=== PATIENT | female | born 1955 | race Caucasian/White ===

== ENCOUNTER → 2016-12-21 | Outpatient (CLI) | payer OTHER ==
[~2016-12-21] MED LIST: ALBUAER19 INH; AMLO-110 PO; CHLO1TAB47 PO; DEXT-10 PO; FLUO20CA37 PO; FURO40TA3 PO; IBUP-1451 PO; VALS320T PO
[2016-12-21 13:00] LABS: ALT/SGPT 50 U/L (12-78); BLOOD UREA NITROGEN 14 mg/dl (7-18); BUN/CREATININE RATIO 16.7 (10-20); CARBON DIOXIDE 28 mmol/L (21-32); CHLORIDE 105 mmol/L (98-107); CREATININE 0.85 mg/dl (0.60-1.20); GLUCOSE 100 mg/dl (70-99); POTASSIUM 4.1 mmol/L (3.5-5.1); SODIUM 141 mmol/L (136-145)
[2016-12-21 13:32] LABS: ALB/GLOB RATIO 1.1 (0.9-2); ALKALINE PHOSPHATASE 93 U/L (45-117); AST/SGOT 26 U/L (15-37)
== END | disposition home or self-care (01) ==
LOC: C.LABBFT 10:56
PROVIDERS: ATTEND Internal Medicine
DX: E55.9 Vitamin D deficiency, unspecified (principal); R53.83 Other fatigue; Z11.59 Encounter for screening for other viral diseases

== ENCOUNTER → 2017-01-16 | Outpatient (CLI) | payer OTHER ==
--- NOTE | 2017-01-16 10:39 | DIAGNOSTIC IMAGING REPORT ---
CAROTID ARTERY ULTRASOUND CLINICAL HISTORY: Possible right-sided carotid bruit. COMPARISON STUDY: None. TECHNIQUE: Real-time, grayscale, and color Doppler sonography of the carotid and vertebral arteries was performed. Images were viewed in the transverse and longitudinal planes. FINDINGS: There is moderate atherosclerotic plaque. Velocity measurements are listed below. COMMON CAROTID PEAK SYSTOLIC VELOCITY (CM/S): RIGHT 67 LEFT 72 ICA PEAK SYSTOLIC VELOCITY (CM/S): RIGHT 78 LEFT 87 The systolic ratios between the internal to common carotid arteries were normal. Antegrade flow is seen in the vertebral arteries. The external carotid arteries are patent. Blood pressure in the right arm measured 197/90. Blood pressure in the left arm measured 199/77. IMPRESSION: 1. No evidence of a hemodynamically significant stenosis. 2. Elevated blood pressure, as above. Electronically signed by: Daniel Cochran M.D. 01/16/2017 10:38 AM Dictated Date/Time: 01/16/2017 10:36 AM
== END | disposition home or self-care (01) ==
LOC: C.ULTR 09:53
PROVIDERS: ATTEND Nurse Practitioner
DX: R09.89 Other specified symptoms and signs involving the circulatory and respiratory systems (principal)

== ENCOUNTER 2017-01-23 14:19 | Emergency (ER) | payer OTHER ==
[~2017-01-23] VITALS: Ht 167.6 cm; Wt 166.7 kg
[~2017-01-23 14:19] MED LIST changes: -AMLO-110 PO
[2017-01-23 14:31] VITALS: TEMP 37
[2017-01-23] MEDS ORDERED: SODIUM CHLORIDE 0.9% 1000ML 1,000 ML IV STA ×2 (15:55→16:13)
[2017-01-23] MEDS ORDERED: DIAZEPAM INJ 5 MG/ML 2 ML CARP IV STA (16:13)
[2017-01-23] MEDS ORDERED: ONDANSETRON 8 MG/54 ML D5W IV STA (16:13)
[2017-01-23 16:20] VITALS: O2SAT 97
[2017-01-23] MEDS ORDERED: OPTIRAY 320 IV PRN (16:30)
[2017-01-23 16:34] LABS: BASO % 0.7 %; BASO ABS # 0.07 K/uL (0-0.2); COMPLETE YES; EOS % 1.9 %; HEMATOCRIT 43.1 % (37-47); IG% 0.2 %; LYMPH % 30.3 %; LYMPH ABS # 2.95 K/uL (1.2-3.4); MEAN CELL VOLUME 90.4 fL (80-100); MEAN CORPUSCULAR HGB CONC 33.2 g/dl (32-36); MEAN PLATELET VOLUME 9.6 fL (7.4-10.4); MONO % 7.8 %; NEUT % 59.1 %; PLATELET COUNT 297 K/uL (130-400); RED BLOOD COUNT 4.77 M/uL (4.2-5.4); WHITE BLOOD COUNT 9.75 K/uL (4.8-10.8)
[2017-01-23 16:43] LABS: PARTIAL THROMBOPLASTIN RATIO 1.1; PROTHROMBIN TIME (PATIENT) 10.4 SECONDS (9.0-12.0)
[2017-01-23 16:48] VITALS: Ht 167.6 cm; Wt 166.7 kg
[2017-01-23 16:54] LABS: ALT/SGPT 44 U/L (12-78); AST/SGOT 24 U/L (15-37); BLOOD UREA NITROGEN 17 mg/dl (7-18); BUN/CREATININE RATIO 22.7 (10-20); CALCIUM 9.1 mg/dl (8.5-10.1); CARBON DIOXIDE 32 mmol/L (21-32); CHLORIDE 105 mmol/L (98-107); CREATININE 0.77 mg/dl (0.60-1.20); GLUCOSE 108 mg/dl (70-99); MAGNESIUM 2.5 mg/dl (1.8-2.4); POTASSIUM 4.5 mmol/L (3.5-5.1); SODIUM 140 mmol/L (136-145)
[2017-01-23 17:05] LABS: ALKALINE PHOSPHATASE 103 U/L (45-117)
[2017-01-23] MEDS ORDERED: AMLO-110 PO (17:11)
--- NOTE | 2017-01-23 18:48 | DIAGNOSTIC IMAGING REPORT ---
CT ANGIOGRAM OF THE BRAIN COMBO; CT ANGIOGRAM OF THE NECK CLINICAL HISTORY: Headache. Dizziness. COMPARISON STUDY: Carotid artery ultrasound dated 01/16/2017. TECHNIQUE: Unenhanced axial CT scan of the brain is performed. Subsequently, following the IV administration of 115 of Optiray 320, CT angiogram of the head and neck was performed from the aortic arch to the vertex. Images are reviewed in the axial, sagittal, and coronal planes. 3-D MIPS images are created and assessed. IV contrast was administered without complication. All measurements were calculated based on NASCET criteria. The CT angiogram the neck is degraded by large body habitus and by streak artifact from the patient's shoulders. CT DOSE: 1654.37 mGy.cm FINDINGS: Brain parenchyma: The brain parenchyma is normal in appearance. There is no hemorrhage, mass effect, or evidence of acute territorial ischemia by CT criteria. There is no evidence of enhancing mass lesion on the angiogram phase images. The ventricles, sulci, and cisterns are normal in configuration. Srivastava-white matter differentiation is preserved. No extra-axial fluid collection is seen. Thoracic aorta: Visualized portions of the thoracic aorta are normal in caliber. The aortic arch demonstrates bovine variant anatomy. Right carotid arterial system: The right common carotid artery is widely patent, as are the right internal and carotid arteries. There is atherosclerotic calcification is noted in the carotid bulb. Left carotid arterial system: The left common carotid artery is widely patent, as are the left internal and external carotid arteries. Atherosclerotic calcification is noted in the carotid bulb. Vertebral arteries: Widely patent and codominant. Subclavian arteries: Widely patent bilaterally. Intracranial vasculature: The internal carotid arteries are widely patent at the skull base. The anterior and middle cerebral arteries are widely patent. The vertebrobasilar system and posterior cerebral arteries are widely patent. The basilar artery and left P1 segment are diminutive, and there is origin of the right posterior cerebral artery. The vertebral arteries are codominant. There is no aneurysm, high-grade stenosis, or focal vessel cutoff identified throughout the intracranial circulation. Jugular veins: Widely patent bilaterally. Dural sinuses: Patent as visualized Lung apices: Partially visualized upper lobe lung parenchyma appears clear. Soft tissues: The visualized pharyngeal soft tissues are normal in appearance noting angiographic phase technique. The oropharyngeal airway appears widely patent. The salivary and thyroid glands are normal in appearance. No cervical lymphadenopathy is seen. Skeletal structures: The calvarium appears intact. The cervical spine is within normal limits noting mild spondylotic change. Sinuses and mastoids: The paranasal sinuses are clear. There is a small left mastoid effusion. The right mastoid air cells are well pneumatized. IMPRESSION: 1. No acute intracranial abnormality. 2. Unremarkable CT angiogram of the brain. 3. Unremarkable CT angiogram of the neck. Electronically signed by: Serafin You M.D. 01/23/2017 6:46 PM Dictated Date/Time: 01/23/2017 6:38 PM
[2017-01-23 19:11] LABS: URINE APPEARANCE CLEAR (CLEAR); URINE BILIRUBIN NEG (NEG); URINE COLOR YELLOW; URINE NITRITE NEG (NEG); URINE SPECIFIC GRAVITY 1.033 (1.000-1.030); UROBILINOGEN NEG (NEG)
[2017-01-23 19:16] LABS: MANUAL MICROSCOPIC REQUIRED? NO; REVIEW REQ? NO
[2017-01-23] MEDS ORDERED: KETOROLAC TROMETHAMINE 30 MG/ML VIAL IV STA (19:38)
[2017-01-23] MEDS ORDERED: TRAMADOL HCL 50 MG HOME PACK PO ONE (20:00)
[2017-01-23] MEDS ORDERED: ONDANSETRON HOME PACK 4MG OD TAB PO ONE (20:00)
[2017-01-23 20:06] VITALS: BP 138/76; PULSE 80; O2SAT 93
--- NOTE | 2017-01-23 21:14 | EMERGENCY ROOM VISIT NOTE ---
History Report prepared by [place]: Damon Parra Under the Supervision of: Dr. John Jarquin M.D. First contact with patient: 15:55 Chief Complaint: DIZZY Stated Complaint: DIZZY History of Present Illness The patient is a 61 year old female who presents to the Emergency Room with complaints of a constant right-sided headache that began around 12 days ago. She currently rates her discomfort a 7/10 in severity. The patient states that she stood up and walked down the hallway. The states by the time she walked to the end of the hallway she felt like she was going to pass out and the room was spinning. She reports that she went to the doctors 8 days ago and she was given Meclizine. She notes that it did not help her symptoms and it made her feel worse. The patient states that she was then sent to physical therapy for vertigo and the physical therapist said she did not have signs of vertigo. She reports that she went to the doctors today. The patient notes that when her symptoms first appeared she was seeing double; now she states she is seeing shadows instead of double. She states that when she walks, she feels like she is going from one side to another. The patient complains of nausea, tiredness, ' feeling off,' neck pain, visual changes, and that light bothers her eyes. She reports that she has gotten headaches before, but this is a completely different headache. Pt denies LOC, headache, fevers, chills, diaphoresis, chest pain, breathing difficulties, vomiting, abdominal pain, back pain, melena, hematochezia, urinary symptoms, numbness, weakness, lymphadenopathy, rash, or other complaints. Source of History: patient Onset: 12 day ago Position: head Quality: other (headache) Timing: constant Associated Symptoms: + nausea, + neck pain Note: Associated symptoms: visual changes, light bothers her eyes, tiredness Review of Systems See HPI for pertinent positives and negatives. A total of ten systems were reviewed and were otherwise negative. Past Medical & Surgical Medical Problems: (1) Asthma (2) Depression (3) Hypertension (4) Migraine (5) Pneumonia Family History Cancer Diabetes mellitus Heart disease Hypertension Social History Smoking Status: Former Smoker Alcohol Use: none Drug Use: none Marital Status: Housing Status: lives with family Occupation Status: unemployed Current/Historical Medications Scheduled Albuterol Inhaler (Ventolin Inhaler), 2 PUFFS INH AMPM Amlodipine (Norvasc), 5 MG PO DAILY Fluoxetine Hcl (Prozac), 20 MG PO DAILY Valsartan (Diovan), 320 MG PO DAILY Scheduled PRN Furosemide (Lasix), 40 MG PO for swelling Ibuprofen Tab (Motrin), 800 MG PO for Pain Allergies Coded Allergies: Codeine (Verified Allergy, Unknown, vomits, dizzy, 12/30/14) Physical Exam Vital Signs Date Time Temp Pulse Resp B/P Pulse Ox O2 Delivery O2 Flow Rate FiO2 01/23/17 20:06 80 18 138/76 93 01/23/17 18:57 75 18 144/51 96 01/23/17 18:55 75 16 144/51 96 86 150/61 85 131/58 01/23/17 17:53 76 16 153/70 95 Room Air 01/23/17 16:35 84 16 126/89 93 Room Air 01/23/17 16:21 85 01/23/17 16:20 97 Room Air 01/23/17 14:31 37.0 86 20 167/74 94 Room Air Physical Exam GENERAL: Awake, alert, well appearing, no distress HENT: Normocephalic, atraumatic. TM's normal. Oropharynx unremarkable. EYES: PERRL. EOMI. Normal conjunctiva. Sclera non-icteric. Minimal lateral nystagmus NECK: Supple. No nuchal rigidity. FROM. No JVD or bruit. RESPIRATORY: CTA CARDIAC: RRR. No murmur. ABDOMEN: Soft, non distended. No tenderness to palpation. No rebound or guarding. No masses. Fundi normal. RECTAL: Deferred. MUSCULOSKELETAL: Unremarkable. No edema. No discoloration. Gross motor strength symmetric. NEURO: Cranial nerves 2-12 grossly intact. Normal sensorium. No sensory or motor deficits noted. Speech normal. No pronator drift. Negative hints exam. SKIN: No rash or jaundice noted. LYMPH: No adenopathy. Medical Decision & Procedures ER Provider Diagnostic Interpretation: Radiology results as stated below per my review and radiologist interpretation CT ANGIOGRAM OF THE BRAIN COMBO; CT ANGIOGRAM OF THE NECK CLINICAL HISTORY: Headache. Dizziness. COMPARISON STUDY: Carotid artery ultrasound dated 01/16/2017. TECHNIQUE: Unenhanced axial CT scan of the brain is performed. Subsequently, following the IV administration of 115 of Optiray 320, CT angiogram of the head and neck was performed from the aortic arch to the vertex. Images are reviewed in the axial, sagittal, and coronal planes. 3-D MIPS images are created and assessed. IV contrast was administered without complication. All measurements were calculated based on NASCET criteria. The CT angiogram the neck is degraded by large body habitus and by streak artifact from the patient's shoulders. CT DOSE: 1654.37 mGy.cm FINDINGS: Brain parenchyma: The brain parenchyma is normal in appearance. There is no hemorrhage, mass effect, or evidence of acute territorial ischemia by CT criteria. There is no evidence of enhancing mass lesion on the angiogram phase images. The ventricles, sulci, and cisterns are normal in configuration. Srivastava-white matter differentiation is preserved. No extra-axial fluid collection is seen. Thoracic aorta: Visualized portions of the thoracic aorta are normal in caliber. The aortic arch demonstrates bovine variant anatomy. Right carotid arterial system: The right common carotid artery is widely patent, as are the right internal and carotid arteries. There is atherosclerotic calcification is noted in the carotid bulb. Left carotid arterial system: The left common carotid artery is widely patent, as are the left internal and external carotid arteries. Atherosclerotic calcification is noted in the carotid bulb. Vertebral arteries: Widely patent and codominant. Subclavian arteries: Widely patent bilaterally. Intracranial vasculature: The internal carotid arteries are widely patent at the skull base. The anterior and middle cerebral arteries are widely patent. The vertebrobasilar system and posterior cerebral arteries are widely patent. The basilar artery and left P1 segment are diminutive, and there is origin of the right posterior cerebral artery. The vertebral arteries are codominant. There is no aneurysm, high-grade stenosis, or focal vessel cutoff identified throughout the intracranial circulation. Jugular veins: Widely patent bilaterally. Dural sinuses: Patent as visualized Lung apices: Partially visualized upper lobe lung parenchyma appears clear. Soft tissues: The visualized pharyngeal soft tissues are normal in appearance noting angiographic phase technique. The oropharyngeal airway appears widely patent. The salivary and thyroid glands are normal in appearance. No cervical lymphadenopathy is seen. Skeletal structures: The calvarium appears intact. The cervical spine is within normal limits noting mild spondylotic change. Sinuses and mastoids: The paranasal sinuses are clear. There is a small left mastoid effusion. The right mastoid air cells are well pneumatized. IMPRESSION: 1. No acute intracranial abnormality. 2. Unremarkable CT angiogram of the brain. 3. Unremarkable CT angiogram of the neck. Electronically signed by: Serafin You M.D. 01/23/2017 6:46 PM Dictated Date/Time: 01/23/2017 6:38 PM Laboratory Results 01/23/17 16:20 Red Blood Count 4.77, Mean Corpuscular Volume 90.4, Mean Corpuscular Hemoglobin 30.0, Mean Corpuscular Hemoglobin Concent 33.2, Mean Platelet Volume 9.6, Neutrophils (%) (Auto) 59.1, Lymphocytes (%) (Auto) 30.3, Monocytes (%) (Auto) 7.8, Eosinophils (%) (Auto) 1.9, Basophils (%) (Auto) 0.7, Neutrophils # (Auto) 5.76, Lymphocytes # (Auto) 2.95, Monocytes # (Auto) 0.76, Eosinophils # (Auto) 0.19, Basophils # (Auto) 0.07 01/23/17 16:20 Test 01/23/17 16:20 01/23/17 18:40 White Blood Count 9.75 K/uL (4.8-10.8) Red Blood Count 4.77 M/uL (4.2-5.4) Hemoglobin 14.3 g/dL (12.0-16.0) Hematocrit 43.1 % (37-47) Mean Corpuscular Volume 90.4 fL (80-100) Mean Corpuscular Hemoglobin 30.0 pg (25-34) Mean Corpuscular Hemoglobin Concent 33.2 g/dl (32-36) Platelet Count 297 K/uL (130-400) Mean Platelet Volume 9.6 fL (7.4-10.4) Neutrophils (%) (Auto) 59.1 % Lymphocytes (%) (Auto) 30.3 % Monocytes (%) (Auto) 7.8 % Eosinophils (%) (Auto) 1.9 % Basophils (%) (Auto) 0.7 % Neutrophils # (Auto) 5.76 K/uL (1.4-6.5) Lymphocytes # (Auto) 2.95 K/uL (1.2-3.4) Monocytes # (Auto) 0.76 K/uL (0.11-0.59) Eosinophils # (Auto) 0.19 K/uL (0-0.5) Basophils # (Auto) 0.07 K/uL (0-0.2) RDW Standard Deviation 40.7 fL (36.4-46.3) RDW Coefficient of Variation 12.2 % (11.5-14.5) Immature Granulocyte % (Auto) 0.2 % Immature Granulocyte # (Auto) 0.02 K/uL (0.00-0.02) Prothrombin Time 10.4 SECONDS (9.0-12.0) Prothromb Time International Ratio 1.0 (0.9-1.1) Activated Partial Thromboplast Time 29.3 SECONDS (21.0-31.0) Partial Thromboplastin Ratio 1.1 Anion Gap 3.0 mmol/L (3-11) Est Creatinine Clear Calc Drug Dose 122.3 ml/min Estimated GFR () 95.9 Estimated GFR (Non- 82.8 BUN/Creatinine Ratio 22.7 (10-20) Calcium Level 9.1 mg/dl (8.5-10.1) Magnesium Level 2.5 mg/dl (1.8-2.4) Total Bilirubin 0.3 mg/dl (0.2-1) Direct Bilirubin < 0.1 mg/dl (0-0.2) Aspartate Amino Transf (AST/SGOT) 24 U/L (15-37) Alanine Aminotransferase (ALT/SGPT) 44 U/L (12-78) Alkaline Phosphatase 103 U/L (45-117) Troponin I < 0.015 ng/ml (0-0.045) Total Protein 7.9 gm/dl (6.4-8.2) Albumin 3.7 gm/dl (3.4-5.0) Lipase 167 U/L (73-393) Thyroid Stimulating Hormone (TSH) 1.720 uIu/ml (0.300-4.500) Urine Color YELLOW Urine Appearance CLEAR (CLEAR) Urine pH 5.0 (4.5-7.5) Urine Specific [place] 1.033 (1.000-1.030) Urine Protein NEG (NEG) Urine Glucose (UA) NEG (NEG) Urine Ketones NEG (NEG) Urine Occult Blood NEG (NEG) Urine Nitrite NEG (NEG) Urine Bilirubin NEG (NEG) Urine Urobilinogen NEG (NEG) Urine Leukocyte Esterase MODERATE (NEG) Urine WBC (Auto) 10-30 /hpf (0-5) Urine RBC (Auto) 0-4 /hpf (0-4) Urine Hyaline Casts (Auto) 1-5 /lpf (0-5) Urine Epithelial Cells (Auto) 10-20 /lpf (0-5) Urine Bacteria (Auto) NEG (NEG) Laboratory results reviewed by me Medications Administered Medications (Trade) Dose Ordered Sig/Noam Route Start Time Stop Time Status Last Admin Dose Admin Sodium Chloride (Nss 1000ml) 1,000 ml @ 125 mls/hr Q8H STAT IV 01/23/17 15:55 01/23/17 20:33 DC 01/23/17 16:37 125 MLS/HR Ondansetron HCl (Zofran 8mg Iv) 8 mg NOW STAT IV 01/23/17 16:13 01/23/17 16:15 DC 01/23/17 16:38 8 MG Diazepam (Valium Inj) 2.5 mg NOW STAT IV 01/23/17 16:13 01/23/17 16:15 DC 01/23/17 16:38 2.5 MG Ketorolac Tromethamine (Toradol Inj) 30 mg NOW STAT IV 01/23/17 19:38 01/23/17 19:39 DC 01/23/17 19:43 30 MG Tramadol HCl (Ultram Home Pack) 1 homepack UD ONCE PO 01/23/17 20:00 01/23/17 20:01 DC 01/23/17 20:03 1 HOMEPACK Ondansetron HCl (ZOFRAN ODT 4MG Home Pack) 1 homepack UD ONCE PO 01/23/17 20:00 01/23/17 20:01 DC 01/23/17 20:02 1 HOMEPACK ECG Indication: weakness Rate (beats per minute): 83 Rhythm: normal sinus Findings: LAFB, no acute ischemic change, no ectopy ED Course 1555: Ordered Sodium Chloride 1000 ml @ 125 mls/hr IV. 1606: The patient was evaluated in room B8. A complete history and physical exam was performed. 1613: Ordered Valium Inj 2.5mg IV, Ondansetron HCL 8mg IV, Sodium Chloride 1000 ml @ 125 mls/hr IV. 1931: I reevaluated the patient and she feels better but still has a minor discomfort in the head. She is going to attempt an ambulatory trial. 1937: Ordered Toradol Inj 30mg IV 1947: The patients ambulatory trial was successful. 1999: Ordered Zofran ODT 4mg Home Pack 1 homepack PO, Tramadol HCl 1 homepack PO. 2005: I reevaluated the patient. Discussed results and discharge instructions: she verbalized understanding and agreement. The patient is ready for discharge. Medical Decision Triage Nursing notes reviewed. The patient's presentation and history were concerning for dizziness. Etiologies such as benign positional vertigo, tumor, infection, hypoglycemia, electrolyte abnormalities, cardiac sources, intracerebral event, toxicologic, neurologic, as well as others were entertained. The patient was evaluated. Clinically she looked well. She had no focal findings on examination. No pathologic nystagmus was noted. The patient was hydrated. She was given Valium as well as Zofran. On reassessment she was feeling much better. The patient had an unremarkable CBC, chemistry panel, urinalysis, cardiac markers, LFTs, lipase, and TSH. The patient ambulated without difficulty. She was also given some Toradol as she noted some mild discomfort in her head. It is possible that this is migraine related as the patient's history does support migraines she notes it's been many years. She did have some photosensitivity. She has no meningeal findings. She has no leukocytosis or fever. The patient had an unremarkable CT angiogram of the head and neck. There is no evidence of aneurysm, dissection, or abrupt cutoff. No obvious CVA signs are seen on CT imaging. MR imaging was considered however the patient notes that she needs an open MRI which is not immediately available. As she has near resolution of symptoms and feels well I believe close follow-up as an outpatient is appropriate. The patient was given a tramadol home pack in case she has any increased pain. She did note taking some Excedrin which did not seem to help. The patient was also given a Zofran home pack as the Zofran seemed to help quite a bit with her nausea which then also health with her symptoms. As the patient is doing very well and desires discharge she will be discharged now to follow-up with her primary office. I did encourage her to discuss outpatient MR imaging if her symptoms do not resolve. I gave my usual and customary discussion regarding this issue. By the evaluation outlined above other emergent etiologies such as those listed in the differential, as well as others, were deemed relatively unlikely. The patient was informed about the findings as listed above. All questions were answered and she was pleased with the treatment. Return instructions were outlined and the patient was discharged in stable condition. The patient was referred to her PCP for follow-up this week as for a recheck of the current condition. The chart was completed utilizing [employer] Speech voice recognition software. Grammatical errors, random word insertions, pronoun errors, and incomplete sentences are an occasional consequence of this system due to software limitations, ambient noise, and hardware issues. Any formal questions or concerns about the content, text, or information contained within the body of this dictation should be directly addressed to the physician for clarification. Impression Primary Impression: Dizziness Scribe Attestation The scribe's documentation has been prepared under my direction and personally reviewed by me in its entirety. I confirm that the note above accurately reflects all work, treatment, procedures, and medical decision making performed by me. Departure Information Dispostion Home / Self-Care Referrals Dorian Limon M.D. (PCP) Forms HOME CARE DOCUMENTATION FORM, IMPORTANT VISIT INFORMATION Patient Instructions [facility] Additional Instructions DIZZINESS INSTRUCTIONS: DO NOT drive, drink alcohol, operate machinery, or perform dangerous activities today. You were given medications in the ER that can affect your ability to safely function or operate a vehicle. You should not drive or perform any dangerous activities until your symptoms resolve. Tramadol 50 mg: Take 1 pill every four hours as needed for breakthrough pain. Avoid alcohol, operating machinery or dangerous equipment, working on ladders or roofs, DRIVING, or situations where being under the influence may be dangerous. Zofran(odansetron) tablets 4mg: Take one and allow it to dissolve in your mouth every four to six hours as needed for nausea or vomiting. Rest and drink plenty of fluids as tolerated. Continue current medications. If you have nausea or vomiting: Once your stomach is settled start with a clear liquid diet (jello, soup broth, etc.) and then advance as tolerated. You should avoid full, heavy meals for about 24 hrs from the time your symptoms resolved. Return to the ER immediately for worsening or persistent dizziness, vomiting, headache, fevers, chest pains, difficulty breathing, black or bloody stools, slurred speech, numbness, weakness, visual changes, worsening of your condition , or as needed. Follow up with your primary physician in 2-3 days for a recheck of your current condition. If the symptoms persist discuss an outpatient open MRI.
== END 2017-01-23 20:06 | disposition home or self-care (01) ==
LOC: C.EDB 14:21
DX: R42 Dizziness and giddiness (principal); R51 Headache; J45.909 Unspecified asthma, uncomplicated; F32.9 Major depressive disorder, single episode, unspecified; I10 Essential (primary) hypertension; Z87.01 Personal history of pneumonia (recurrent); Z80.9 Family history of malignant neoplasm, unspecified; Z83.3 Family history of diabetes mellitus; Z82.49 Family history of ischemic heart disease and other diseases of the circulatory system; Z87.891 Personal history of nicotine dependence; Z79.899 Other long term (current) drug therapy

== ENCOUNTER → 2017-01-24 | Outpatient (CLI) | payer OTHER ==
[~2017-01-24] MED LIST changes: +AMLO-110 PO; -CHLO1TAB47 PO; -DEXT-10 PO
[2017-01-24 19:02] LABS: LYME DISEASE AB IGG NEG (NEG)
[2017-01-24 20:26] LABS: LYME DISEASE AB IGM EQUIVOCAL (NEG)
[2017-01-29 23:38] LABS: 18KDIGG BAND NONREACTIVE (NONREACTIVE); 23KDIGG BAND REACTIVE (NONREACTIVE); 23KDIGM BAND REACTIVE (NONREACTIVE); 28KDIGG BAND NONREACTIVE (NONREACTIVE); 30KDIGG BAND NONREACTIVE (NONREACTIVE); 39KDIGG BAND NONREACTIVE (NONREACTIVE); 39KDIGM BAND NONREACTIVE (NONREACTIVE); 41KDIGG BAND NONREACTIVE (NONREACTIVE); 41KDIGM BAND NONREACTIVE (NONREACTIVE); 45KDIGG BAND NONREACTIVE (NONREACTIVE); 58KDIGG BAND NONREACTIVE (NONREACTIVE); 66KDIGG BAND REACTIVE (NONREACTIVE); 93KDIGG BAND NONREACTIVE (NONREACTIVE)
== END | disposition home or self-care (01) ==
LOC: C.LABBFT 17:52
PROVIDERS: ATTEND Nurse Practitioner
DX: R51 Headache (principal); R42 Dizziness and giddiness; H53.8 Other visual disturbances

== ENCOUNTER → 2017-01-29 | Outpatient (CLI) | payer OTHER ==
--- NOTE | 2017-01-29 11:08 | DIAGNOSTIC IMAGING REPORT ---
ULTRASOUND SOFT TISSUES NECK CLINICAL HISTORY: Soft tissue nodule. COMPARISON STUDY: CT angiogram the neck dated 01/23/2017. FINDINGS: Real-time, grayscale, and color flow sonography of the soft tissues of the right posterior neck is performed at the indicated site of interest. No concerning mass or fluid collection is seen. There is a small benign-appearing suboccipital lymph seen at the site of interest. This measures 0.9 x 0.5 x 0.8 cm and demonstrates a fatty hilum. No pathologically enlarged lymph nodes are identified. IMPRESSION: The finding of palpable concern corresponds to a tiny benign-appearing suboccipital lymph node. Clinical follow-up only is recommended. Electronically signed by: Serafin You M.D. 01/29/2017 11:07 AM Dictated Date/Time: 01/29/2017 11:05 AM
== END | disposition home or self-care (01) ==
LOC: C.ULTR 10:37
PROVIDERS: ATTEND Nurse Practitioner
DX: M79.89 Other specified soft tissue disorders (principal)